=== PATIENT | male | born 1945 | race Caucasian/White ===

== ENCOUNTER → 2019-03-23 | Outpatient (CLI) | payer OTHER, MEDICARE | LOC: OD 11:01 | PROVIDERS: ATTEND Otolaryngology | DX: H69.83 Other specified disorders of Eustachian tube, bilateral (principal) | CPT/HCPCS: 36415; 82785; 86003 ==

== ENCOUNTER 2019-08-27 10:42 | Emergency (ER) | payer OTHER, MEDICARE ==
--- NOTE | 2019-08-27 10:49 | ER Document Report ---
ED Medical Screen (RME) - General Stated Complaint: LEFT LEG SWELLING Time Seen by Provider: 08/27/19 10:47 Primary Care Provider: LULÚ BURGESS MD [Primary Care Provider] - Follow up as needed Notes: 74 y/o male presents for LLE pain/swelling for 2 weeks. States fell 2 weeks ago and his leg has continued to swelling. Distal pedal pulses 2+. Tenderness to left calf. Denies chest pain or dyspnea. I have greeted and performed a rapid initial assessment of this patient. A comprehensive ED assessment and evaluation of the patient, analysis of test results and completion of the medical decision making process with be conducted by additional ED providers. TRAVEL OUTSIDE OF THE [place] IN LAST 30 DAYS: No - Related Data Allergies/Adverse Reactions: Penicillins Allergy (Verified 09/27/12 09:26) Rash amitriptyline [Amitriptyline] Adverse Reaction (Verified 09/27/12 09:26) Changes in Eye Sight naproxen [Naproxen] Adverse Reaction (Verified 09/27/12 09:26) Abdominal Pain omeprazole [Omeprazole] Adverse Reaction (Verified 09/27/12 09:26) Abdominal Pain Pollen Allergy (Uncoded 09/27/12 09:26) Past Medical History - Past Medical History Cardiac Medical History: Reports: Hx Hypercholesterolemia Denies: Hx Coronary Artery Disease - High cholesterol, Hx Heart Attack, Hx Hypertension Pulmonary Medical History: Reports: Hx Asthma, Hx Bronchitis, Hx COPD Denies: Hx Pneumonia Neurological Medical History: Denies: Hx Cerebrovascular Accident, Hx Seizures Musculoskeltal Medical History: Denies Hx Arthritis Psychiatric Medical History: Denies: Hx Depression - Immunizations Hx Diphtheria, Pertussis, Tetanus Vaccination: No Doctor's Discharge - Discharge Referrals: LULÚ BURGESS MD [Primary Care Provider] - Follow up as needed
[2019-08-27 12:29] LABS: ABSOLUTE BASOPHILS # (AUTO) 0.1 10^3/uL (0.0-0.2); ABSOLUTE EOSINOPHILS # (AUTO) 0.2 10^3/uL (0.0-0.6); ABSOLUTE LYMPHOCYTES (AUTO) 2.5 10^3/uL (0.5-4.7); ABSOLUTE MONOCYTES (AUTO) 0.5 10^3/uL (0.1-1.4); ABSOLUTE NEUT (AUTO) 3.9 10^3/uL (1.7-8.2); BASOPHILS % (AUTO) 0.7 % (0-2); EOSINOPHILS % (AUTO) 2.8 % (0-6); HEMATOCRIT 44.2 % (37.9-51.0); HEMOGLOBIN 15.1 g/dL (13.5-17.0); LYMPHOCYTES % (AUTO) 34.8 % (13-45); MEAN CORPUSCULAR HEMOGLOBIN 31.7 pg (27.0-33.4); MEAN CORPUSCULAR HGB CONC 34.1 g/dL (32.0-36.0); MEAN CORPUSCULAR VOLUME 93 fl (80-97); MONOCYTES % (AUTO) 7.2 % (3-13); PLATELET COUNT 229 10^3/uL (150-450); RED BLOOD COUNT 4.76 10^6/uL (4.35-5.55); RED CELL DISTRIBUTION WIDTH 13.1 % (11.5-14.0); SEGMENTED NEUTROPHILS % (AUTO) 54.5 % (42-78); TOTAL CELLS COUNTED % (AUTO) 100 %; WHITE BLOOD COUNT 7.2 10^3/uL (4.0-10.5)
[2019-08-27 12:39] LABS: INTERNATIONAL RATION (INR) 0.97; PROTHROMBIN TIME 12.8 SEC (11.4-15.4)
[2019-08-27 12:40] LABS: PARTIAL THROMBOPLASTIN TIME 28.6 SEC (23.5-35.8)
[2019-08-27 12:51] LABS: ANION GAP 8 (5-19); BLOOD UREA NITROGEN 19 mg/dL (7-20); CALCIUM 9.3 mg/dL (8.4-10.2); CARBON DIOXIDE 26 mmol/L (22-30); CHLORIDE 106 mmol/L (98-107); GLUCOSE 92 mg/dL (75-110); POTASSIUM 4.3 mmol/L (3.6-5.0)
--- NOTE | 2019-08-27 14:16 | RADIOLOGY REPORT (SQ) ---
EXAM DESCRIPTION: VENOUS UNILATERAL LOWER COMPLETED DATE/TIME: 08/27/2019 1:57 pm REASON FOR STUDY: LLE swelling/pain COMPARISON: None. TECHNIQUE: Dynamic and static merino scale and color images acquired of the left leg venous system. Se lected spectral images acquired with additional compression and augmentation maneuvers. The contralat eral common femoral vein and saphenofemoral junction were also imaged. Images stored on PACS. LIMITATIONS: None. FINDINGS: COMMON FEMORAL: Normal phasicity, compression and augmentation. No visualized echogenic ma terial on merino scale. No defects on color images. FEMORAL: Normal compression and augmentation. No visualized echogenic material on merino scale. No defe cts on color images. POPLITEAL: Normal compression, augmentation. No visualized echogenic material on merino scale. No defec ts on color images. CALF VESSELS: Normal compression, augmentation. No visualized echogenic material on merino scale. No de fects on color images. GSV and SSV: Normal compression, augmentation. No visualized echogenic material on merino scale. No def ects on color images. ANY DEEP VENOUS INSUFFICIENCY: No. ANY EVIDENCE OF POPLITEAL CYST: No. OTHER: Large complex fluid collection in the soft tissues of the upper medial calf. CONTRALATERAL COMMON FEMORAL VEIN AND SAPHENOFEMORAL JUNCTION: Normal phasicity, compression and augmentation. No visualized echogenic material on merino scale. No de fects on color images. IMPRESSION: NO EVIDENCE DVT OR SVT IN THE LEFT LEG. LARGE COMPLEX FLUID COLLECTION IN THE SOFT TISSUES OF THE UPPER MEDIAL CALF, PRESUMABLY HEMATOMA. TECHNICAL DOCUMENTATION: JOB ID: [id number] 2010 [employer]- All Rights Reserved Reading location - IP/workstation name: [email or web address]
--- NOTE | 2019-08-27 14:54 | RADIOLOGY REPORT (SQ) ---
EXAM DESCRIPTION: ANKLE LEFT AP/LATERAL COMPLETED DATE/TIME: 08/27/2019 2:43 pm REASON FOR STUDY: SWELLING COMPARISON: None. NUMBER OF VIEWS: Two views. TECHNIQUE: AP and lateral radiographic images acquired of the left ankle. LIMITATIONS: None. FINDINGS: MINERALIZATION: Normal. BONES: No acute fracture or dislocation. Corticated osseous structure at the tip of the medial malle olus. Calcaneal spur. No worrisome bone lesions. JOINTS: Degenerative changes in the tibiotalar joint. SOFT TISSUES: No soft tissue swelling. No foreign body. OTHER: No other significant finding. IMPRESSION: CHRONIC CHANGES. NO RADIOGRAPHIC EVIDENCE OF ACUTE INJURY. TECHNICAL DOCUMENTATION: JOB ID: [id number] 2010 [employer]- All Rights Reserved Reading location - IP/workstation name: [email or web address]
--- NOTE | 2019-08-27 14:54 | RADIOLOGY REPORT (SQ) ---
EXAM DESCRIPTION: TIBIA FIBULA LEFT COMPLETED DATE/TIME: 08/27/2019 2:43 pm REASON FOR STUDY: pain to left ankle COMPARISON: None. NUMBER OF VIEWS: Two views. TECHNIQUE: Two radiographic images acquired of the left tibia and fibula to include the knee and ank le in at least one projection. LIMITATIONS: None. FINDINGS: MINERALIZATION: Normal. BONES: No acute fracture or dislocation. Marked degenerative changes in the knee. No worrisome bone lesions. SOFT TISSUES: No obvious swelling or foreign body. OTHER: No other significant finding. IMPRESSION: MARKED DEGENERATIVE CHANGES IN THE KNEE. NEGATIVE STUDY OF THE LEFT TIBIA AND FIBULA. N O RADIOGRAPHIC EVIDENCE OF ACUTE INJURY. TECHNICAL DOCUMENTATION: JOB ID: [id number] 2010 [employer]- All Rights Reserved Reading location - IP/workstation name: [email or web address]
--- NOTE | 2019-08-27 15:37 | ER Document Report ---
HPI - HPI Time Seen by Provider: 08/27/19 10:47 Pain Level: 3 Context: Patient is a 74-year-old male who presents the emergency department with a chief complaint of left calf pain. 2 weeks ago he ended up falling and hurting his leg and his ankle. Patient has been walking on it. He states that over time it has gotten progressively better, but still continues to ache. He is not currently on any blood thinners. - ROS Systems Reviewed and Negative: Yes All other systems reviewed and negative - CARDIOVASCULAR Cardiovascular: DENIES: Chest pain - RESPIRATORY Respiratory: DENIES: Trouble Breathing, Coughing - REPRODUCTIVE Reproductive: DENIES: : - MUSCULOSKELETAL Musculoskeletal: REPORTS: Extremity pain - Left lower extrm - DERM Skin Color: Normal Skin Problems: Bruise - Left medial ankle and left posterior calf Past Medical History - Social History Smoking Status: Unknown if Ever Smoked Chew tobacco use (# tins/day): No Frequency of alcohol use: None Drug Abuse: None Family History: Reviewed & Not Pertinent Patient has suicidal ideation: No Patient has homicidal ideation: No - Past Medical History Cardiac Medical History: Reports: Hx Hypercholesterolemia Denies: Hx Coronary Artery Disease - High cholesterol, Hx Heart Attack, Hx Hypertension Pulmonary Medical History: Reports: Hx Asthma, Hx Bronchitis, Hx COPD Denies: Hx Pneumonia Neurological Medical History: Denies: Hx Cerebrovascular Accident, Hx Seizures Musculoskeletal Medical History: Denies Hx Arthritis Psychiatric Medical History: Denies: Hx Depression - Immunizations Hx Diphtheria, Pertussis, Tetanus Vaccination: No Vertical Provider Document - CONSTITUTIONAL Agree With Documented VS: Yes Exam Limitations: No Limitations General Appearance: No Apparent Distress - INFECTION CONTROL TRAVEL OUTSIDE OF THE [place] IN LAST 30 DAYS: No - HEENT HEENT: Atraumatic, Normocephalic, PERRLA - RESPIRATORY Respiratory: No Respiratory Distress - CARDIOVASCULAR Pulses: Normal: Posterior tibial, Dorsalis pedis - MUSCULOSKELETAL/EXTREMETIES Musculoskeletal/Extremeties: FROM, Tender - Left medial ankle and left posterior calf, Edema - Left calf area, Eccymosis - Left medial ankle - NEURO Level of Consciousness: Awake, Alert, Appropriate Motor/Sensory: No Motor Deficit, No Sensory Deficit - DERM Integumentary: Warm, Dry, No Rash Course - Re-evaluation Re-evalutation: 08/27/19 14:10 Hematology is unremarkable. No leukocytosis or anemia noted. Coagulation studies ordered in triage are normal. Chemistries are unremarkable. Venous Doppler study shows a large hematoma noted. No DVT noted. I will order an x- ray, as the patient had fallen. I am wondering if there is possibly a fracture. Patient has 2+ dorsalis pedis and posterior tibial pulses. 08/27/19 15:30 According to the radiologist, there is a bone spur noted to the calcaneus bone. I suspect that may be the patient had a avulsion fracture that is now healing. I discussed this finding with the patient and explained to him that if he continues to have pain, to follow-up with orthopedics or podiatry in regards to this. The patient states that he has crutches at home. I advised him to use the crutches and to stay off of his foot and allow it to heal in the next week. He is in agreement with this plan. Follow-up precautions were given. Verbal discharge instructions were given to the patient. They verbalized understanding. They are stable for discharge. - Vital Signs Vital signs: Temp Pulse Resp BP Pulse Ox 18 129/85 H 96 08/27/19 13:01 08/27/19 13:00 08/27/19 13:01 - Laboratory Result Diagrams: 08/27/19 12:15 08/27/19 12:15 Discharge - Discharge Clinical Impression: Left leg pain Hematoma of left lower extremity Qualifiers: Encounter type: initial encounter Qualified Code(s): S80.12XA - Contusion of left lower leg, initial encounter Condition: Stable Disposition: HOME, SELF-CARE Additional Instructions: You were seen today in the emergency department for left leg and ankle pain. You do not have a blood clot, but you have a large bruise in the area. Please make sure that you use crutches. Use an Jay wrap to help with swelling. Rest for the next week and do not apply pressure to the area. You also have a bone spur, which could also possibly be a fracture that might have happened after your fall. It is healing at this time. Follow-up with your primary care provider. If it continues to bother you, please follow-up with podiatry or orthopedics. Referrals: LULÚ BURGESS MD [ACTIVE STAFF] - Follow up in 3-5 days CRISS ALVARES MD [ACTIVE PROVISIONAL STAFF] - Follow up as needed SHANNAN TOMAS JR, DO [ACTIVE PROVISIONAL STAFF] - Follow up as needed CHRIS RANGEL MD [ACTIVE STAFF] - Follow up as needed KARISHMA BAJWA DPM [ACTIVE STAFF] - Follow up as needed
[2019-08-27 16:07] VITALS: BP 125/85
== END 2019-08-27 16:06 | disposition home or self-care (01) ==
LOC: ER 10:42
DX: S80.12XA Contusion of left lower leg, initial encounter (principal); S90.02XA Contusion of left ankle, initial encounter; M79.662 Pain in left lower leg; W19.XXXA Unspecified fall, initial encounter; M77.32 Calcaneal spur, left foot; J44.9 Chronic obstructive pulmonary disease, unspecified
CPT/HCPCS: 36415; 80048; 85025; 85610; 85730; 93971; 99284